=== PATIENT | female | born 1945 | race Caucasian/White ===

== ENCOUNTER 2016-07-14 21:48 | Emergency (ER) | payer MEDICARE ==
[~2016-07-14] VITALS: Ht 172.7 cm; Wt 56.7 kg
[~2016-07-14 21:48] MED LIST: ALPR0.5T PO; AMLO5TAB2 PO; CETI10TA22 PO; CIPR500T PO; FLUT1DIS3 IH; HYDR25SU4 RC; IPRA3AMP NEB; LEVO500T38 PO; ONDA8TAB9 PO; POLY17PO5 PO; PRED-220 PO; TIOT18CA IH; UMEC1DIS IH
[2016-07-14 22:01] VITALS: BP 150/98
[2016-07-14 22:47] LABS: BASO % 2 % (0-3); EOS % 7 % (0-3); HEMATOCRIT 34.4 % (36.0-47.0); HEMOGLOBIN 11.6 g/dL (12.0-15.5); LYMPH # 0.6 x10^3/uL (1.0-4.8); LYMPH % 44 % (24-48); MEAN CORPUSCULAR HEMOGLOBIN 33 pg (25-35); MEAN CORPUSCULAR HGB CONC 34 g/dL (31-37); MEAN CORPUSCULAR VOLUME 98 fL (79-100); MONO % 39 % (0-9); NEUT % 9 % (31-73); PLATELET COUNT 212 x10^3/uL (140-400); RED CELL DISTRIBUTION WIDTH 15.2 % (11.5-14.5)
--- NOTE | 2016-07-14 22:51 | PHYS DOC ---
Past Medical History Past Medical History: Constipation, COPD, Other Additional Past Medical Histor: LUNG CA Past Surgical History: No Surgical History Alcohol Use: None Drug Use: None Adult General Chief Complaint Chief Complaint: SHORTNESS OF BREATH HPI HPI Patient is a 70 year old female who presents with complaint of shortness of breath. Patient states her symptoms started yesterday and have progressively worsened. Patient states that she is expressing shortness of breath while at rest. Patient has history of COPD and history of lung cancer. Patient states that she received her last dose of chemotherapy one week ago. Patient states that she is having tightness through chest and having difficulty taking a deep breath. Patient denies productive cough or fever. Patient also denies chest pain or abdominal pain. Patient took a nebulized treatment twice earlier today with no relief in symptoms. Review of Systems Review of Systems Constitutional: Denies fever or chills [] Eyes: Denies change in visual acuity, redness, or eye pain [] HENT: Denies nasal congestion or sore throat [] Respiratory: Shortness of breath [] Cardiovascular: Denies chest pain or edema [] GI: Denies abdominal pain, nausea, vomiting, bloody stools or diarrhea [] : Denies dysuria or hematuria [] Musculoskeletal: Denies back pain or joint pain [] Integument: Denies rash or skin lesions [] Neurologic: Denies headache, focal weakness or sensory changes [] Current Medications Current Medications Current Medications Medications (Trade) Dose Ordered Sig/Tony Start Time Stop Time Status Last Admin Dose Admin Albuterol/ Ipratropium (Duoneb) 6 ml 1X ONCE 07/14/16 23:00 07/14/16 23:01 DC 07/14/16 23:19 6 ML Info (Do NOT chart on this entry -- for MONITORING) 1 each PRN DAILY PRN 07/14/16 23:45 07/16/16 23:44 Iohexol (Omnipaque 300 Mg/ml) 75 ml 1X ONCE 07/14/16 23:45 07/14/16 23:46 Sodium Chloride (Iv Sodium Chloride 0.9% 1000ml Bag) 1,000 ml @ 100 mls/hr Q10H 07/14/16 23:00 07/15/16 08:59 07/14/16 22:50 100 MLS/HR Allergies Allergies Allergies Coded Allergies Type Severity Reaction Last Updated Verified No Known Drug Allergies 09/20/14 No Physical Exam Physical Exam Constitutional: Alert, afebrile, appears in mild to moderate respiratory distress. [] HENT: Normocephalic, atraumatic, bilateral external ears normal, oropharynx moist, no oral exudates, nose normal. [] Eyes: PERRLA, EOMI, conjunctiva normal, no discharge. [] Neck: Normal range of motion, no tenderness, supple, no stridor. [] Cardiovascular:Heart rate regular rhythm, no murmur [] Lungs & Thorax: Moderate restriction of air movement bilaterally, faint extremity wheezes bilaterally, no rales [] Abdomen: Bowel sounds normal, soft, no tenderness, no masses, no pulsatile masses. [] Skin: Warm, dry, no erythema, no rash. [] Back: No tenderness, no CVA tenderness. [] Extremities: No tenderness, no cyanosis, no clubbing, ROM intact, no edema. [] Neurologic: Alert and oriented X 3, normal motor function, normal sensory function, no focal deficits noted. [] Current Patient Data Vital Signs Vital Signs Date Time Temp Pulse Resp B/P Pulse Ox O2 Delivery O2 Flow Rate FiO2 07/14/16 23:29 98 07/14/16 22:01 97.8 104 28 150/98 Room Air 97.8 Lab Values Laboratory Tests Test 07/14/16 22:20 07/14/16 22:58 07/14/16 23:05 White Blood Count 1.4x10^3/uL (4.0-11.0) *L Red Blood Count 3.50x10^6/uL (3.50-5.40) Hemoglobin 11.6g/dL (12.0-15.5) L Hematocrit 34.4% (36.0-47.0) L Mean Corpuscular Volume 98fL (79-100) Mean Corpuscular Hemoglobin 33pg (25-35) Mean Corpuscular Hemoglobin Concent 34g/dL (31-37) Red Cell Distribution Width 15.2% (11.5-14.5) H Platelet Count 212x10^3/uL (140-400) Neutrophils (%) (Auto) 9% (31-73) L Lymphocytes (%) (Auto) 44% (24-48) Monocytes (%) (Auto) 39% (0-9) H Eosinophils (%) (Auto) 7% (0-3) H Basophils (%) (Auto) 2% (0-3) Neutrophils # (Auto) 0.1x10^3uL (1.8-7.7) L Lymphocytes # (Auto) 0.6x10^3/uL (1.0-4.8) L Monocytes # (Auto) 0.5x10^3/uL (0.0-1.1) Eosinophils # (Auto) 0.1x10^3/uL (0.0-0.7) Basophils # (Auto) 0.0x10^3/uL (0.0-0.2) Segmented Neutrophils % 4% (35-66) L Band Neutrophils % 1% (0-9) Lymphocytes % 50% (24-48) H Monocytes % 32% (0-10) H Eosinophils % 10% (0-5) H Basophils % 3% (0-3) Toxic Vacuolation Slight Platelet Estimate Adequate (ADEQUATE) Sodium Level 145mmol/L (136-145) Potassium Level 3.5mmol/L (3.5-5.1) Chloride Level 109mmol/L (98-107) H Carbon Dioxide Level 26mmol/L (21-32) Anion Gap 10 (6-14) Blood Urea Nitrogen 12mg/dL (7-20) Creatinine 0.4mg/dL (0.6-1.0) L Estimated GFR (Cockcroft-Gault) 158.7 Glucose Level 140mg/dL (70-99) H Calcium Level 8.8mg/dL (8.5-10.1) Magnesium Level 1.6mg/dL (1.8-2.4) L Total Bilirubin 0.2mg/dL (0.2-1.0) Direct Bilirubin 0.1mg/dL (0.0-0.2) Aspartate Amino Transferase (AST) 14U/L (15-37) L Alanine Aminotransferase (ALT) 20U/L (14-59) Alkaline Phosphatase 92U/L (46-116) Creatine Kinase 44U/L (26-192) Creatine Kinase MB (Mass) 0.7ng/mL (0.0-3.6) Creatine Kinase MB Relative Index 1.6% (0-4) Troponin I Quantitative < 0.017ng/mL (0.000-0.055) QJ-Bbb-L-Type Natriuretic Peptide 59pg/mL (0-124) Total Protein 6.2g/dL (6.4-8.2) L Albumin 3.3g/dL (3.4-5.0) L Urine Collection Type Clean catch Urine Color Yellow Urine Clarity Cloudy Urine pH 5.5 Urine Specific [place] 1.020 Urine Protein Negativemg/dL (NEG-TRACE) Urine Glucose (UA) Negativemg/dL (NEG) Urine Ketones (Stick) Negativemg/dL (NEG) Urine Blood Negative (NEG) Urine Nitrite Negative (NEG) Urine Bilirubin Negative (NEG) Urine Urobilinogen Dipstick 0.2mg/dL (0.2 mg/dL) Urine Leukocyte Esterase Negative (NEG) Urine RBC Occ/HPF (0-2) Urine WBC Occ/HPF (0-4) Urine Squamous Epithelial Cells Mod/LPF Urine Bacteria Few/HPF (0-FEW) Urine Mucus Marked/LPF Laboratory Tests 07/14/16 22:20 Laboratory Tests 07/14/16 22:58 EKG EKG Interpreted by me: Heart rate 84, sinus rhythm, normal intervals, normal axis, nonspecific T-wave inversion in aVL, no acute ST elevations or depressions [] Radiology/Procedures Radiology/Procedures One view AP chest x-ray interpreted by me: Left hilar mass appears decreased from previous, no new infiltrates or effusions Course & Med Decision Making Course & Med Decision Making Pertinent Labs and Imaging studies reviewed. (See chart for details) The patient was given DuoNeb breathing treatments in the emergency department. Patient's chest x-ray appears improved from her previous. Etiology of patient's dyspnea may be due to COPD exacerbation, however a PE cannot be ruled out at this time. For this reason the patient will undergo CT angiogram rule out PE as she does have risk with her associated lung cancer. The patient was also found to be neutropenic. I consult to Dr. Corrales of hematology/oncology. She stated that if the patient's symptoms improved and the patient did not have evidence of pulmonary embolism that the patient could be discharged home with no specific treatment for her neutropenia as the patient is not displaying evidence of fever or infection at this time. She did state however that if the patient's symptoms do not improve with standard therapy and the patient would need to be admitted the hospital that she should receive Neupogen 300 g daily. At time of sign out, patient is pending a CT angiogram to rule out pulmonary embolism. Care of patient was taken over by Dr. Milligan at 2350. Dragon Disclaimer Dragon Disclaimer This electronic medical record was generated, in whole or in part, using a voice recognition dictation system. Departure Departure Impression: Primary Impression: Shortness of breath Referrals: KATIE HESTER MD (PCP) MONI MISHRA MD Jul 14, 2016 22:51
[2016-07-14 22:55] LABS: WHITE BLOOD COUNT 1.4 x10^3/uL (4.0-11.0)
[2016-07-14] MEDS ORDERED: IPRATRPIUM/ALBUTEROL 0.5/2.5MG 3 ML NEBU. NEB ONE (23:00)
[2016-07-14] MEDS ORDERED: IV NORMAL SALINE 1000ML BAG 1,000 ML IV SCH (23:00)
[2016-07-14 23:13] LABS: BILIRUBIN,URINE NEGATIVE (NEG); GLUCOSE,URINE NEGATIVE (NEG); NITRITE,URINE NEGATIVE (NEG); PH,URINE 5.5; PROTEIN,URINE NEGATIVE (NEG-TRACE); UROBILINOGEN,URINE 0.2 mg/dL (0.2 mg/dL)
[2016-07-14 23:15] LABS: % BASOS 3 % (0-3); % EOS 10 % (0-5); PLT ESTIMATE ADEQUATE (ADEQUATE)
[2016-07-14 23:16] LABS: TOXIC VACUOLATION SLIGHT
[2016-07-14 23:17] LABS: CALCIUM 8.8 mg/dL (8.5-10.1); CREATININE 0.4 mg/dL (0.6-1.0); GFR 158.7; POTASSIUM 3.5 mmol/L (3.5-5.1)
[2016-07-14 23:22] LABS: ALBUMIN 3.3 g/dL (3.4-5.0); DIRECT BILIRUBIN 0.1 mg/dL (0.0-0.2); MAGNESIUM 1.6 mg/dL (1.8-2.4); TOTAL BILIRUBIN 0.2 mg/dL (0.2-1.0); TOTAL PROTEIN 6.2 g/dL (6.4-8.2)
[2016-07-14 23:23] LABS: BACTERIA,URINE FEW /HPF (0-FEW); RBC,URINE OCC /HPF (0-2); SQUAMOUS EPITHELIAL CELL,UR MOD /LPF; WBC,URINE OCC /HPF (0-4)
[2016-07-14 23:30] LABS: CKMB INDEX 1.6 % (0-4); CKMB MASS 0.7 ng/mL (0.0-3.6)
[2016-07-14] MEDS ORDERED: IOHEXOL 300 MG/ML 75 ML VIAL IV ONE (23:45)
[2016-07-14] MEDS ORDERED: CONTRAST GIVEN MC PRN (23:45)
--- NOTE | 2016-07-15 00:18 | RAD ---
Examination: CT angiography chest. History: History of lung cancer, shortness of breath. COMPARISON 02/10/[address] angiographic images with is for performed with IV contrast. Coronal sagittal 3D MIP reformats were performed. Findings : The visualized thyroid gland demonstrates a 1.4 centimeter hypodense nodule identified in the left lobe of the thyroid gland. Mild cardiomegaly. Moderate aortic atherosclerosis. Diffuse coronary artery calcifications identified. There is no evidence of filling defect identified in the main pulmonary arterial trunk and right, left main pulmonary arteries and the visualized lobar, segmental branches of the pulmonary arteries. There is a solid appearing density identified in the left upper lobe of the lung in the region of the lingula measuring about 7.5 centimeters with some narrowing of the left lingular bronchus likely malignancy or postobstructive atelectasis. This soft tissue density abuts the pericardium medially and extends towards the anterior pleura laterally abutting the distal portion of the fissure. Severe bilateral emphysematous changes identified in the lungs. The visualized liver, spleen, adrenals grossly appears unremarkable . Mild degenerative changes thoracic spine. IMPRESSION - No evidence of pulmonary embolism. - Large masslike density identified in the left upper lobe of the lung in the lingula as described above with narrowing of the left lingular bronchus likely known malignancy or endobronchial lesion with postobstructive atelectasis has decreased in size compared to prior exam. - Severe emphysematous changes identified in the bilateral lungs. - Coronary artery calcifications. - 1.4 centimeter hypodense nodule identified in the left lobe of thyroid gland. Followup nonemergent ultrasound thyroid is recommended. Electronically signed by: Jaleel Morales (Jul 15, 2016 00:16:20)
[2016-07-15] MEDS ORDERED: PRED50TA PO (00:23)
[2016-07-15] MEDS ORDERED: PROAIR HFA8.5 GM INH (00:24)
--- NOTE | 2016-07-15 06:35 | EKG ---
[facility] [address] [place] [address] Test Date: 2016-07-14 Test Time: 22:04:21 Pat Name: GREER APARICIO Department: Room: Gender: F Programming Internship: : 1945 Requested By: MONI MISHRA Order Number: [id number] Reading MD: Joann Rosales Measurements Intervals [place] Rate: 84 P: 45 [place]: 146 QRS: 84 QRSD: 90 T: 92 QT: 354 QTc: 421 Interpretive Statements SINUS RHYTHM INCOMPLETE RBBB Electronically Signed On 07-18-2016 18:13:34 CDT by Joann Rosales
--- NOTE | 2016-07-15 07:44 | RAD ---
EXAM: Chest, single view. HISTORY: Shortness of breath. COMPARISON: 02/14/2016. FINDINGS: A frontal view of the chest is obtained. There is increased lingular and left perihilar opacity. There is no effusion or pneumothorax. There is hyperinflation and hyperlucency due to emphysema. The heart is upper normal in size. IMPRESSION: 1. Lingular and left perihilar opacity. The differential includes partially consolidated infiltrate or neoplasm. This can be better characterized with a CT. 2. Emphysema.
== END 2016-07-15 00:30 | disposition home or self-care (01) ==
LOC: ER 21:48
DX: R06.02 Shortness of breath (principal); R07.89 Other chest pain; J44.1 Chronic obstructive pulmonary disease with (acute) exacerbation; Z85.118 Personal history of other malignant neoplasm of bronchus and lung; Z51.11 Encounter for antineoplastic chemotherapy
CPT/HCPCS: 36415; 71010; 71275; 80048; 80076; 81001; 82553; 83735; 83880; 84484; 85007; 85027; 93005; 94640; 96360; 96361; 99285; J7030; J7620; Q9967

== ENCOUNTER 2016-09-18 09:40 | Inpatient (IN) | payer MEDICARE ==
[~2016-09-18] VITALS: Ht 170.2 cm; Wt 54.4 kg
[~2016-09-18 09:40] MED LIST changes: +POLY17PO29 PO; -POLY17PO5 PO; +PRED50TA PO; +PROAIR HFA8.5 GM INH
--- NOTE | 2016-09-18 10:16 | RAD ---
Indication: Shortness of breath and history of lung cancer. Time of exam 10 0 6:00 AM Correlation is made with prior chest from 07/14/2016. The heart size is stable. Lungs are hyperinflated consistent with COPD. Previously noted left perihilar and lingular parenchymal density appears stable. No new infiltrate is seen. No effusion or pneumothorax is detected. Impression: Stable chest since exam from 07/14/2016.
[2016-09-18 10:34] LABS: BASO % 0 % (0-3); EOS % 0 % (0-3); HEMATOCRIT 42.3 % (36.0-47.0); HEMOGLOBIN 14.1 g/dL (12.0-15.5); LYMPH # 0.3 x10^3/uL (1.0-4.8); LYMPH % 12 % (24-48); MEAN CORPUSCULAR HEMOGLOBIN 32 pg (25-35); MEAN CORPUSCULAR HGB CONC 33 g/dL (31-37); MEAN CORPUSCULAR VOLUME 97 fL (79-100); MONO % 7 % (0-9); NEUT % 81 % (31-73); PLATELET COUNT 138 x10^3/uL (140-400); RED BLOOD COUNT 4.38 x10^6/uL (3.50-5.40); RED CELL DISTRIBUTION WIDTH 13.7 % (11.5-14.5); WHITE BLOOD COUNT 2.6 x10^3/uL (4.0-11.0)
[2016-09-18 10:39] LABS: OBC FLU VALID
[2016-09-18 11:00] LABS: CALCIUM 8.9 mg/dL (8.5-10.1); CREATININE 0.4 mg/dL (0.6-1.0); GFR 158.7; POTASSIUM 4.1 mmol/L (3.5-5.1)
[2016-09-18 11:04] LABS: ALBUMIN 3.8 g/dL (3.4-5.0); TOTAL BILIRUBIN 0.5 mg/dL (0.2-1.0); TOTAL PROTEIN 7.5 g/dL (6.4-8.2)
[2016-09-18] MEDS ORDERED: IV NORMAL SALINE 1000ML BAG 1,000 ML IV ONE (11:15)
[2016-09-18] MEDS ORDERED: IOHEXOL 300 MG/ML 75 ML VIAL IV ONE (11:30)
[2016-09-18] MEDS ORDERED: CONTRAST GIVEN MC PRN (11:30)
--- NOTE | 2016-09-18 11:56 | RAD ---
Indication: Shortness of breath and history of lung carcinoma. Axial imaging through the chest was performed after the administration of intravenous contrast and utilizing the CT angiography protocol. Multiplanar, 3-D and MIP reformations were also performed. Comparison is made with prior CT from 07/14/2016. Evaluation of the pulmonary arterial system is without evidence of thromboembolism. No filling defects are detected. The thoracic aorta is normal caliber. No dissection is seen. There are atherosclerotic changes present. No pericardial or pleural fluid is identified. The previously noted opacity extending from the left hilum towards the lingular pleural surface and narrowing the lingular bronchus is again noted and appears smaller on today's study. This measures 4.9 x 3.2 cm compared with 6.1 x 3.5 cm when measured by the same technique. No new mass is detected. There are centrilobular emphysematous changes in both lungs. The upper abdomen appears stable. Impression: 1. No evidence of pulmonary embolism or thoracic aortic dissection. 2. Decrease in size of left hilar parenchymal opacity when compared with exam from 07/14/2016. PQRS Compliance Statement: One or more of the following individualized dose reduction techniques were utilized for this examination: 1. Automated exposure control 2. Adjustment of the mA and/or kV according to patient size 3. Use of iterative reconstruction technique
[2016-09-18] MEDS ORDERED: IPRATRPIUM/ALBUTEROL 0.5/2.5MG 3 ML NEBU. NEB ONE (12:30)
--- NOTE | 2016-09-18 12:34 | EKG ---
[facility] [address] [place] [address] Test Date: 2016-09-18 Test Time: 10:02:38 Pat Name: GREER APARICIO Department: Room: Gender: F [employer] Operator: : 1945 Requested By: ES PEDERSEN Order Number: [id number] Reading MD: Severiano Manrique Measurements Intervals [place] Rate: 69 P: 65 [place]: 142 QRS: 87 QRSD: 90 T: 89 QT: 370 QTc: 398 Interpretive Statements SINUS RHYTHM QRS(T) CONTOUR ABNORMALITY CONSIDER ANTEROSEPTAL MYOCARDIAL DAMAGE RI6.01 Unconfirmed report Compared to ECG 07/14/2016 22:04:21 Right bundle-branch block no longer present Electronically Signed On 09-22-2016 9:40:16 CDT by Severiano Manrique
[2016-09-18] MEDS ORDERED: AZITHRMYCN 500MG IVPB FOR OMNI 250 ML IV ONE (12:45)
--- NOTE | 2016-09-18 13:30 | ED.ADGEN ---
Past Medical History Past Medical History: Cancer, Constipation, COPD, Other Additional Past Medical Histor: LUNG CA Past Surgical History: No Surgical History Alcohol Use: None Drug Use: None Adult General Chief Complaint Chief Complaint: SHORTNESS OF BREATH HPI HPI Patient is a 70 year old woman, history of lung cancer status post treatment with chemotherapy, for which she is being followed by Dr. Oreilly, COPD, hypertension, who presents emergency Department with a complaint of worsening shortness of breath and dyspnea and exertion. Patient states that she previously would occasionally use her oxygen as needed, 2 L, but was able to ambulance to the bathroom and perform other activities of daily living without supple oxygen. She states however over the past week or so she had progressively worsening shortness of breath, with a nonproductive cough at times. Patient was seen by her primary care provider last week, at that time she was prescribed prednisone and ciprofloxacin which she states she has been taking as directed. She denies any recent travel, history of DVT or PE, any swelling extremities, any history of PE, any weakness, numbness, tingling, rash , sick contacts or exposures other medication changes or complaints. Primary care provider is Dr. Mathew. Review of Systems Review of Systems Constitutional: Denies fever or chills. [] Eyes: Denies change in visual acuity. [] HENT: Denies nasal congestion or sore throat. [] Respiratory: Cough, nonproductive, with worsening shortness of breath Cardiovascular: Denies chest pain or edema. [] GI: Denies abdominal pain, nausea, vomiting, bloody stools or diarrhea. [] : Denies dysuria. [] Musculoskeletal: Denies back pain or joint pain. [] Integument: Denies rash. [] Neurologic: Denies headache, focal weakness or sensory changes. [] Endocrine: Denies polyuria or polydipsia. [] Lymphatic: Denies swollen glands. [] Psychiatric: Denies depression or anxiety. [] Current Medications Current Medications Current Medications Medications (Trade) Dose Ordered Sig/Tony Start Time Stop Time Status Last Admin Dose Admin Info (Do NOT chart on this entry -- for MONITORING) 1 each PRN DAILY PRN 09/18/16 11:30 09/20/16 11:29 Iohexol (Omnipaque 300 Mg/ml) 75 ml 1X ONCE 09/18/16 11:30 09/18/16 11:31 DC 09/18/16 11:28 75 ML Sodium Chloride 1,000 ml @ 1,000 mls/hr 1X ONCE 09/18/16 11:15 09/18/16 12:14 DC 09/18/16 11:55 1,000 MLS/HR Allergies Allergies Allergies Coded Allergies Type Severity Reaction Last Updated Verified No Known Drug Allergies 09/20/14 No Physical Exam Physical Exam Constitutional: Well developed, thin, nasal cannula in place, no acute distress , non-toxic appearance. [] HENT: Normocephalic, atraumatic, bilateral external ears normal, oropharynx moist, no oral exudates, nose normal. [] Eyes: PERRLA, EOMI, conjunctiva normal, no discharge. [] Neck: Normal range of motion, no tenderness, supple, no stridor. [] Cardiovascular:Heart rate regular rhythm, no murmur S1, S2, no rubs or gallops. [] Lungs & Thorax: Patient with coarse breath sounds noted in lung bases, with diminished breath sounds noted throughout, patient with 2 L nasal cannula in place, respiratory rate is unlabored, oxygen saturation is 94%. [] Abdomen: Bowel sounds normal, soft, no tenderness, no rebound, rigidity, no guarding, no masses, no pulsatile masses. [] Skin: Warm, dry, no erythema, no rash. [] Back: No tenderness, no CVA tenderness. [] Extremities: No tenderness, no cyanosis, no clubbing, ROM intact, no edema. Negative Homans sign. [] Neurologic: Alert and oriented X 3, normal motor function, normal sensory function, no focal deficits noted. [] Psychologic: Affect normal, judgement normal, mood normal. [] Current Patient Data Vital Signs Vital Signs Date Time Temp Pulse Resp B/P (MAP) Pulse Ox O2 Delivery O2 Flow Rate FiO2 09/18/16 09:50 96.9 70 20 124/66 (85) 95 Nasal Cannula 2.0 96.9 Lab Values Laboratory Tests Test 09/18/16 10:02 09/18/16 10:18 Influenza Type A Antigen Negative (NEGATIVE) Influenza Type B Antigen Negative (NEGATIVE) White Blood Count 2.6 x10^3/uL (4.0-11.0) L Red Blood Count 4.38 x10^6/uL (3.50-5.40) Hemoglobin 14.1 g/dL (12.0-15.5) Hematocrit 42.3 % (36.0-47.0) Mean Corpuscular Volume 97 fL (79-100) Mean Corpuscular Hemoglobin 32 pg (25-35) Mean Corpuscular Hemoglobin Concent 33 g/dL (31-37) Red Cell Distribution Width 13.7 % (11.5-14.5) Platelet Count 138 x10^3/uL (140-400) L Neutrophils (%) (Auto) 81 % (31-73) H Lymphocytes (%) (Auto) 12 % (24-48) L Monocytes (%) (Auto) 7 % (0-9) Eosinophils (%) (Auto) 0 % (0-3) Basophils (%) (Auto) 0 % (0-3) Neutrophils # (Auto) 2.1 x10^3uL (1.8-7.7) Lymphocytes # (Auto) 0.3 x10^3/uL (1.0-4.8) L Monocytes # (Auto) 0.2 x10^3/uL (0.0-1.1) Eosinophils # (Auto) 0.0 x10^3/uL (0.0-0.7) Basophils # (Auto) 0.0 x10^3/uL (0.0-0.2) Sodium Level 142 mmol/L (136-145) Potassium Level 4.1 mmol/L (3.5-5.1) Chloride Level 102 mmol/L (98-107) Carbon Dioxide Level 30 mmol/L (21-32) Anion Gap 10 (6-14) Blood Urea Nitrogen 10 mg/dL (7-20) Creatinine 0.4 mg/dL (0.6-1.0) L Estimated GFR (Cockcroft-Gault) 158.7 BUN/Creatinine Ratio 25 (6-20) H Glucose Level 115 mg/dL (70-99) H Calcium Level 8.9 mg/dL (8.5-10.1) Total Bilirubin 0.5 mg/dL (0.2-1.0) Aspartate Amino Transferase (AST) 16 U/L (15-37) Alanine Aminotransferase (ALT) 21 U/L (14-59) Alkaline Phosphatase 78 U/L (46-116) Troponin I Quantitative < 0.017 ng/mL (0.000-0.055) FX-Dvr-L-Type Natriuretic Peptide 65 pg/mL (0-124) Total Protein 7.5 g/dL (6.4-8.2) Albumin 3.8 g/dL (3.4-5.0) Albumin/Globulin Ratio 1.0 (1.0-1.7) Laboratory Tests 09/18/16 10:18 Laboratory Tests 09/18/16 10:18 EKG EKG EC: Sinus rhythm, heart rate 69 beats minute, upright axis, rate 98, NV 142, QRS of 90, contour normality is noted in the anterior septal leads, no ST depressions, no significant elevations, abnormal ECG, does not meet STEMI criteria. As interpreted by me. [] Radiology/Procedures Radiology/Procedures [][address] [address] IMAGING REPORT Signed PATIENT: GREER APARICIO ACCOUNT: [id number] : 1945 LOCATION: ER AGE: 70 SEX: F EXAM STATUS: REG ER ORD. PHYSICIAN: ES PEDERSEN DO REASON: SOB PROCEDURE: CHEST PA & LATERAL Indication: Shortness of breath and history of lung cancer. Time of exam 10 0 6:00 AM Correlation is made with prior chest from 07/14/2016. The heart size is stable. Lungs are hyperinflated consistent with COPD. Previously noted left perihilar and lingular parenchymal density appears stable. No new infiltrate is seen. No effusion or pneumothorax is detected. Impression: Stable chest since exam from 07/14/2016. DICTATED and SIGNED BY: SMILEY WYMAN MD DATE: 09/18/16 1012 CC: ES PEDERSEN DO; KATIE MATHEW MD ~ Impressions: [address] [address] IMAGING REPORT Signed PATIENT: GREER APARICIO ACCOUNT: [id number] : 1945 LOCATION: ER AGE: 70 SEX: F EXAM STATUS: REG ER ORD. PHYSICIAN: ES PEDERSEN DO REASON: SOB/Hypoxia PROCEDURE: CT ANGIOGRAPHY CHEST Indication: Shortness of breath and history of lung carcinoma. Axial imaging through the chest was performed after the administration of intravenous contrast and utilizing the CT angiography protocol. Multiplanar, 3-D and MIP reformations were also performed. Comparison is made with prior CT from 07/14/2016. Evaluation of the pulmonary arterial system is without evidence of thromboembolism. No filling defects are detected. The thoracic aorta is normal caliber. No dissection is seen. There are atherosclerotic changes present. No pericardial or pleural fluid is identified. The previously noted opacity extending from the left hilum towards the lingular pleural surface and narrowing the lingular bronchus is again noted and appears smaller on today's study. This measures 4.9 x 3.2 cm compared with 6.1 x 3.5 cm when measured by the same technique. No new mass is detected. There are centrilobular emphysematous changes in both lungs. The upper abdomen appears stable. Impression: 1. No evidence of pulmonary embolism or thoracic aortic dissection. 2. Decrease in size of left hilar parenchymal opacity when compared with exam from 07/14/2016. PQRS Compliance Statement: One or more of the following individualized dose reduction techniques were utilized for this examination: 1. Automated exposure control 2. Adjustment of the mA and/or kV according to patient size 3. Use of iterative reconstruction technique DICTATED and SIGNED BY: SMILEY WYMAN MD DATE: 09/18/16 1145 CC: ES PEDERSEN DO; KATIE MATHEW MD ~ Course & Med Decision Making Course & Med Decision Making Pertinent Labs and Imaging studies reviewed. (See chart for details) Patient with evidence of dehydration clinically and examination, states that she is having a decreased appetite, and very poor eating and drinking over the past several days. Patient states that she is feeling increasingly tired, fatigued, and using her oxygen constantly. Chest x-ray does not reveal any acutely concerning findings, laboratory studies reveal a white count of 2.6, patient's white count is fluctuate previously, from 1.7 on her last admission. After discussion at bedside, with patient's history of cancer, and worsening respiratory status, she is agreeable to receiving a CT of the chest to rule out a PE or other acute pathology. CT obtained without issue, no evidence of PE noted, patient noted to have improvement of the hilar mass. I did discuss these findings with patient she is released medics, however she remains dyspneic and fatigued, with evidence dehydration as stated. After discussion with patient she is agreeable for admission to the hospital, for treatment with supportive respiratory care, continue IV antibiotics and IV fluids. Findings as above discussed with Dr. Medina, on-call for the patient's primary care provider, patient accepted to his service a full admission to the medical telemetry floor , with plan as above to continue treatment for community-acquired pneumonia, and consultation for pulmonary critical care. Dragon Disclaimer Dragon Disclaimer This electronic medical record was generated, in whole or in part, using a voice recognition dictation system. Departure Impression: Primary Impression: Dyspnea Additional Impression: Shortness of breath Disposition: ADMITTED INPATIENT Admitting Physician: Melonie Medina Condition: IMPROVED Problem Qualifiers ES PEDERSEN DO Sep 18, 2016 13:30
[2016-09-18] MEDS ORDERED: ACETAMINOPHEN 325 MG TABLET. PO PRN (14:00)
[2016-09-18] MEDS ORDERED: ONDANSETRON PF 4 MG/2 ML VIAL. IV PRN (14:00)
[2016-09-18 14:22] VITALS: BP 135/61
[2016-09-18] MEDS: IV NORMAL SALINE 1000ML BAG 1,000 ML IV SCH ×2 (14:48→22:08)
[2016-09-18] MEDS ORDERED: CIPR500T6 PO (15:05)
[2016-09-18] MEDS ORDERED: PRED-220 PO (15:05)
[2016-09-18] MEDS: methylPREDNISolone SOD SUCC PF 40 MG/ML VIAL. IV SCH ×2 (15:26→22:05)
[2016-09-18] MEDS ORDERED: ALPRAZolam 0.5 MG TABLET PO PRN (15:30)
[2016-09-18] MEDS ORDERED: POLYETHYLENE GLYCOL 3350 17 GM PACKET. PO PRN (15:30)
[2016-09-18] MEDS: IPRATRPIUM/ALBUTEROL 0.5/2.5MG 3 ML NEBU. NEB SCH ×2 (15:41→19:54)
--- NOTE | 2016-09-18 15:47 | PDOC ---
Provider Note Provider Note H&P dictated # [id number] LENNY RAY MD Sep 18, 2016 15:47
[2016-09-18] MEDS ORDERED: IPRATRPIUM/ALBUTEROL 0.5/2.5MG 3 ML NEBU. NEB SCH (16:00)
[2016-09-18] MEDS: amLODIPine BESYLATE 5 MG TABLET PO SCH (16:00)
--- NOTE | 2016-09-18 16:37 | HP ---
ADMIT DATE: 09/18/2016 ADMISSION DIAGNOSIS: Acute respiratory failure. HISTORY OF PRESENT ILLNESS: This is a 70-year-old female with lung cancer who has been getting chemotherapy, followed by Dr. Oreilly, who saw Dr. Mathew recently with symptoms of bronchitis and was started on Cipro and some steroids as an outpatient, but she has continued to have worsened and gotten more dyspneic and came to the Emergency Room. She was trying to use 2 liters of oxygen at home, but was too short of breath to ambulate to the bathroom despite the supplemental oxygen. She had not any fever, chills or night sweats or hemoptysis. PAST MEDICAL HISTORY: Significant for lung cancer, COPD, heart disease, GERD, hemorrhoids, constipation, kidney stones, and anxiety. PAST SURGICAL HISTORY: Include cataract extraction in 1994, tonsillectomy as a child and treatment for lung cancer starting last fall. ALLERGIES: She has no known drug allergies. HOME MEDICATIONS: Include albuterol inhaler 1 puff q. 6 h. p.r.n., alprazolam 0.5 mg q. 6 h. p.r.n., amlodipine 5 mg daily, cetirizine 10 mg daily, Cipro 500 mg b.i.d., DuoNeb nebulized q.i.d., Zofran 8 mg b.i.d. p.r.n. nausea and vomiting, MiraLax 17 g daily p.r.n. constipation, prednisone currently on a taper, and Spiriva 1 inhalation daily. SOCIAL HISTORY: She is a former 40+ pack year smoker. She drinks alcohol occasionally, usually wine. REVIEW OF SYSTEMS: As mentioned above. No fever or chills. She has been progressively short of breath. She denies chest pain. She has not had any nausea, vomiting or diarrhea. She has been somewhat weak and deconditioned, but has not had any falls. She had not had any skin problems. No neurologic problems. No psychiatric issues. Her anxiety is controlled. PHYSICAL EXAMINATION: VITAL SIGNS: Stable. She is afebrile, blood pressure 126/59, pulse 68, respiratory rate 20, oximetry 96%, currently on 2 liters nasal cannula. GENERAL: Her hair is cut quite short. She looks thin, but she is energetic and alert and oriented. She is able to have a normal conversation ____ dyspnea. NECK: Supple. HEART: Sounds are distant. LUNGS: Have rhonchi and expiratory wheezes throughout, though. ABDOMEN: Soft, nondistended, and nontender. EXTREMITIES: There is no clubbing, cyanosis or peripheral edema, no bruising, no skin breakdown. LABORATORY DATA: Her white count is down to 2.6, hemoglobin is 14.1, and platelets 138. Chemistries are pretty unremarkable with normal electrolytes, normal BUN and creatinine. EGFR of 158. Troponins are negative. Flu testing is negative. IMAGING STUDIES: Chest x-ray is stable with COPD changes and left perihilar and lingular parenchymal densities are stable. Chest CTA showed no evidence of pulmonary embolism. There is a decrease in the size of the left hilar parenchymal opacity compared with 2 months ago. ASSESSMENT: 1. Acute respiratory failure, likely on the basis of pneumonia, although this is not showing up on her chest x-ray. 2. Lung cancer. 3. Hypertension. 4. Chronic obstructive pulmonary disease. 5. Anxiety. PLAN: She is admitted. She is on oxygen, neb treatments, IV steroids, and antibiotics. She is being hydrated with IV fluids. Pulmonary consultation is requested. Shawanda RAY MD DR: ZACH/liz JOB#: [id number] / [id number]
[2016-09-18 19:00] VITALS: BP 123/57
[2016-09-18 23:00] VITALS: BP 122/54
[2016-09-19 03:37] VITALS: BP 126/60
[2016-09-19 04:20] LABS: BASO % 0 % (0-3); EOS % 0 % (0-3); HEMATOCRIT 37.2 % (36.0-47.0); HEMOGLOBIN 12.5 g/dL (12.0-15.5); LYMPH # 0.3 x10^3/uL (1.0-4.8); LYMPH % 13 % (24-48); MEAN CORPUSCULAR HEMOGLOBIN 32 pg (25-35); MEAN CORPUSCULAR HGB CONC 34 g/dL (31-37); MEAN CORPUSCULAR VOLUME 96 fL (79-100); MONO % 8 % (0-9); NEUT % 79 % (31-73); PLATELET COUNT 135 x10^3/uL (140-400); RED BLOOD COUNT 3.88 x10^6/uL (3.50-5.40); RED CELL DISTRIBUTION WIDTH 13.6 % (11.5-14.5)
[2016-09-19 04:39] LABS: CALCIUM 8.4 mg/dL (8.5-10.1); CREATININE 0.5 mg/dL (0.6-1.0); GFR 122.7; POTASSIUM 4.5 mmol/L (3.5-5.1)
[2016-09-19 07:00] VITALS: BP 114/61
--- NOTE | 2016-09-19 07:31 | ACF ---
Admission Forms Criteria COPD Clinical Indications for Admission to Inpatient Care (Place 'X' for any and all applicable criteria): Admission is indicated for ANY ONE of the following (1)(2)(3): [X]I. Acute exacerbation by high-risk comorbidity (e.g., pneumonia, dysrhythmia, heart failure, pleural effusion, pneumothorax) or severe underlying COPD (e.g., steroid dependent) [X]II. Inpatient admission required rather than observation care (see Chronic Obstructive Pulmonary Disease: Observation Care) because of ANY ONE of the following: [X]a) New or pre-existing signs or symptoms of COPD (eg, dyspnea or Tachypnea at rest or with minimal activity) that persist despite outpatient and observation care treatment [ ]b) New-onset hypoxemia (room air SaO2 less than 90%, PO2 less than 60 mm Hg (8.0 kPa)) that persists despite outpatient and observation care treatment [ ]c) Worsening of pre-existing hypoxemia (eg, new or increased requirement for supplemental oxygen to maintain oxygenation at baseline level) that persists despite outpatient and observation care treatment, with oxygen treatment needs performable only in acute inpatient setting [ ]d) Hypercarbia (PCO2 greater than 40 mm Hg (5.3 kPa))-induced respiratory acidosis (pH less than 7.35) that persists despite outpatient and observation care treatment [ ]e) Supplemental oxygen or respiratory treatments for over 24 hours that are performable only in acute inpatient setting [ ]f) Chest tube placement with active evacuation (e.g., suction, drainage) (5) [ ]g) Other condition, treatment or monitoring requiring inpatient admission [ ]III. Planned invasive surgical or diagnostic procedures requiring acute- care hospitalization [ ]IV. Acute respiratory failure (e.g., uncompensated hypercarbia, severe hypoxemia) [ ]V. Severe comorbid condition (e.g., severe steroid myopathy, acute vertebral fracture) that has acutely worsened pulmonary function [ ]. Confusion state, lethargy, obtundation, stupor or coma Extended stay beyond goal length of stay may be needed for (31)(32): [ ]a ) Respiratory Failure. [ ]b) Severe or persisting hypoxemia or hypercarbia [ ]c) Severe or persistent dyspnea [ ]d) Comorbidities (e.g. chronic heart failure, atrial fibrillation with rapid response, pneumonia) [ ]e) Malnutrition The original [facility] content created by [facility] has been revised. The portions of the content which have been revised are identified through the use of italic text or in bold, and [facility] has neither reviewed nor approved the modified material. All other unmodified content is copyright [facility]. Please see references footnoted in the original [facility] edition 2016 Admission Criteria Met?: Yes DREA LOPEZ Sep 19, 2016 07:31
[2016-09-19] MEDS: IPRATRPIUM/ALBUTEROL 0.5/2.5MG 3 ML NEBU. NEB SCH ×2 (07:41→11:20)
--- NOTE | 2016-09-19 08:51 | PDOC ---
Provider Note Provider Note dictated PASCUAL WADSWORTH MD Sep 19, 2016 08:51
[2016-09-19] MEDS ORDERED: CETIRIZINE HCL 10 MG TABLET. PO SCH (09:00)
--- NOTE | 2016-09-19 09:18 | CONS ---
DATE OF CONSULTATION: ATTENDING PHYSICIAN: Dr. Breezy Medina. REASON FOR CONSULTATION: Dyspnea. HISTORY OF PRESENT ILLNESS: The patient is a 70-year-old female who has history of lung cancer, which was diagnosed in December of last year. She is status post chemo which she finished in June. She also is status post radiation, which she finished in April of this year. She smoked for about 35 years. She came to the hospital with 4-5 days of shortness of breath and also pain in the left shoulder. The patient states she usually uses oxygen 2 liters, but it did not help. She was seen as an outpatient by Dr. Blackman and was placed on steroids and an antibiotic without any improvement. As a result, she was hospitalized. In the Emergency Room, she underwent CTA of the chest, which was reviewed by me. There was no evidence of pulmonary embolism. There was decrease in the size of left hilar parenchymal opacity. There was also evidence of mild opacity, ground glass infiltrates in the lingular area. She feels better. Consultation requested for further evaluation and management. PAST MEDICAL HISTORY: Significant for lung cancer status post chemo, finished in June of this year and status post radiation, finished in April, history of GERD, history of oxygen dependent COPD, history of hemorrhoids, constipation, kidney stones, and anxiety. PAST SURGICAL HISTORY: Cataract extraction in 1994, tonsillectomy as a child and treatment for lung cancer starting last fall as discussed above. ALLERGIES: None. CURRENT MEDICATIONS: Reviewed as listed in the MRAD. REVIEW OF SYSTEMS: Twelve-point system obtained. Pertinent positives discussed in history of present illness, otherwise noncontributory. All systems that were negative were reviewed as well. ALLERGIES: None. SOCIAL HISTORY: Smoked for 50 years before quitting last year. PHYSICAL EXAMINATION: VITAL SIGNS: Stable. Pulse ox 98% on 3 liters. NECK: Supple. LUNGS: Diminished breath sounds bilaterally. CARDIOVASCULAR: Regular rate and rhythm. ABDOMEN: Soft and nontender. EXTREMITIES: With no pitting edema. LABORATORY DATA: Reviewed. White cell count 2.0, hemoglobin 12.5 and platelets are 135. BUN 10 and creatinine 0.5. IMPRESSION: 1. Dyspnea with acute on chronic hypoxic respiratory failure requiring 3 liters of oxygen. This is secondary to acute exacerbation of chronic obstructive pulmonary disease. 2. History of lung cancer status post chemo and radiation. Overall size of the left hilar mass-like opacity has decreased showing response to chemo. She is status post chemo and radiation. 3. Mild ground glass infiltrate in the lingular area, probably related to radiation-induced changes, but cannot exclude pneumonitis as she did have some cold symptoms a week ago. RECOMMENDATIONS: 1. Continue with present antibiotics. 2. Continue with present oxygen and slowly wean to a baseline of 2 liters. 3. IV steroids. 4. Nebulizer treatment. 5. Possible discharge in next 24 hours. 6. Follow up with Oncology. PASCUAL WADSWORTH MD DR: BARTOLO/liz JOB#: [id number] / [id number] JOSH
[2016-09-19] MEDS: methylPREDNISolone SOD SUCC PF 40 MG/ML VIAL. IV SCH (09:21)
[2016-09-19] MEDS: amLODIPine BESYLATE 5 MG TABLET PO SCH (09:21)
[2016-09-19 10:36] VITALS: BP 113/53
--- NOTE | 2016-09-19 11:34 | DISCH ---
DISCHARGE INSTRUCTIONS Condition on Discharge Condition on Discharge: Stable Activity After Discharge Activity Instructions for Disc: Activity as tolerated Diet after Discharge Diet after Discharge: Regular Contacting the DR. after DC Call your doctor for: Fever greater than 100 Follow-Up Follow up with: Dr. Mathew within [address] Oreilly as scheduled Treatment/Equipment after DC Discharge Respiratory Equipmen: Oxygen (has at haome), Nebulizer (has at home) LENNY RAY MD Sep 19, 2016 11:34
--- NOTE | 2016-09-19 11:40 | PDOC3 ---
Discharge Summary Visit Information Date of Admission: Sep 18, 2016 Date of Discharge: Sep 19, 2016 Final Diagnosis Problems Acute respiratory failure on chronic respiratory failure due to bronchitis and acute COPD exacerbation causing symptoms of worsening shortness of breath having failed OP treatment Status: Acute Brief Hospital Course Allergies Allergies Coded Allergies Type Severity Reaction Last Updated Verified No Known Drug Allergies 09/20/14 No Vital Signs Vital Signs Date Time Temp Pulse Resp B/P (MAP) Pulse Ox O2 Delivery O2 Flow Rate FiO2 09/19/16 11:21 98 Nasal Cannula 3.0 09/19/16 10:36 98.2 76 18 113/53 (73) 98.2 Lab Results Laboratory Tests Test 09/18/16 10:02 09/18/16 10:18 09/19/16 03:51 Influenza Type A Antigen Negative (NEGATIVE) Influenza Type B Antigen Negative (NEGATIVE) White Blood Count 2.6 x10^3/uL (4.0-11.0) 2.0 x10^3/uL (4.0-11.0) Red Blood Count 4.38 x10^6/uL (3.50-5.40) 3.88 x10^6/uL (3.50-5.40) Hemoglobin 14.1 g/dL (12.0-15.5) 12.5 g/dL (12.0-15.5) Hematocrit 42.3 % (36.0-47.0) 37.2 % (36.0-47.0) Mean Corpuscular Volume 97 fL (79-100) 96 fL (79-100) Mean Corpuscular Hemoglobin 32 pg (25-35) 32 pg (25-35) Mean Corpuscular Hemoglobin Concent 33 g/dL (31-37) 34 g/dL (31-37) Red Cell Distribution Width 13.7 % (11.5-14.5) 13.6 % (11.5-14.5) Platelet Count 138 x10^3/uL (140-400) 135 x10^3/uL (140-400) Neutrophils (%) (Auto) 81 % (31-73) 79 % (31-73) Lymphocytes (%) (Auto) 12 % (24-48) 13 % (24-48) Monocytes (%) (Auto) 7 % (0-9) 8 % (0-9) Eosinophils (%) (Auto) 0 % (0-3) 0 % (0-3) Basophils (%) (Auto) 0 % (0-3) 0 % (0-3) Neutrophils # (Auto) 2.1 x10^3uL (1.8-7.7) 1.6 x10^3uL (1.8-7.7) Lymphocytes # (Auto) 0.3 x10^3/uL (1.0-4.8) 0.3 x10^3/uL (1.0-4.8) Monocytes # (Auto) 0.2 x10^3/uL (0.0-1.1) 0.2 x10^3/uL (0.0-1.1) Eosinophils # (Auto) 0.0 x10^3/uL (0.0-0.7) 0.0 x10^3/uL (0.0-0.7) Basophils # (Auto) 0.0 x10^3/uL (0.0-0.2) 0.0 x10^3/uL (0.0-0.2) Sodium Level 142 mmol/L (136-145) 146 mmol/L (136-145) Potassium Level 4.1 mmol/L (3.5-5.1) 4.5 mmol/L (3.5-5.1) Chloride Level 102 mmol/L (98-107) 108 mmol/L (98-107) Carbon Dioxide Level 30 mmol/L (21-32) 36 mmol/L (21-32) Anion Gap 10 (6-14) 2 (6-14) Blood Urea Nitrogen 10 mg/dL (7-20) 10 mg/dL (7-20) Creatinine 0.4 mg/dL (0.6-1.0) 0.5 mg/dL (0.6-1.0) Estimated GFR (Cockcroft-Gault) 158.7 122.7 BUN/Creatinine Ratio 25 (6-20) Glucose Level 115 mg/dL (70-99) 124 mg/dL (70-99) Calcium Level 8.9 mg/dL (8.5-10.1) 8.4 mg/dL (8.5-10.1) Total Bilirubin 0.5 mg/dL (0.2-1.0) Aspartate Amino Transf (AST/SGOT) 16 U/L (15-37) Alanine Aminotransferase (ALT/SGPT) 21 U/L (14-59) Alkaline Phosphatase 78 U/L (46-116) Troponin I Quantitative < 0.017 ng/mL (0.000-0.055) BG-Hal-R-Type Natriuretic Peptide 65 pg/mL (0-124) Total Protein 7.5 g/dL (6.4-8.2) Albumin 3.8 g/dL (3.4-5.0) Albumin/Globulin Ratio 1.0 (1.0-1.7) Laboratory Tests Test 09/19/16 03:51 White Blood Count 2.0 x10^3/uL (4.0-11.0) Red Blood Count 3.88 x10^6/uL (3.50-5.40) Hemoglobin 12.5 g/dL (12.0-15.5) Hematocrit 37.2 % (36.0-47.0) Mean Corpuscular Volume 96 fL (79-100) Mean Corpuscular Hemoglobin 32 pg (25-35) Mean Corpuscular Hemoglobin Concent 34 g/dL (31-37) Red Cell Distribution Width 13.6 % (11.5-14.5) Platelet Count 135 x10^3/uL (140-400) Neutrophils (%) (Auto) 79 % (31-73) Lymphocytes (%) (Auto) 13 % (24-48) Monocytes (%) (Auto) 8 % (0-9) Eosinophils (%) (Auto) 0 % (0-3) Basophils (%) (Auto) 0 % (0-3) Neutrophils # (Auto) 1.6 x10^3uL (1.8-7.7) Lymphocytes # (Auto) 0.3 x10^3/uL (1.0-4.8) Monocytes # (Auto) 0.2 x10^3/uL (0.0-1.1) Eosinophils # (Auto) 0.0 x10^3/uL (0.0-0.7) Basophils # (Auto) 0.0 x10^3/uL (0.0-0.2) Sodium Level 146 mmol/L (136-145) Potassium Level 4.5 mmol/L (3.5-5.1) Chloride Level 108 mmol/L (98-107) Carbon Dioxide Level 36 mmol/L (21-32) Anion Gap 2 (6-14) Blood Urea Nitrogen 10 mg/dL (7-20) Creatinine 0.5 mg/dL (0.6-1.0) Estimated GFR (Cockcroft-Gault) 122.7 Glucose Level 124 mg/dL (70-99) Calcium Level 8.4 mg/dL (8.5-10.1) Brief Hospital Course Ms. Berman is a 70 old who presented with worsening SOA despite outpatient treatment of bronchitis with oral cipro and prednisone. She required higher than baseline oxygen, continuous neb tx in ER and IV hydration, IV steroids and neb treatments but her CXR did not show pneumonia and she improved quickly and wants to manage lingering exacerbation at home. She is neutropenic from lung cancer treatment but afebrile and stable for discharge. Dr. Day saw her in consultation Discharge Information Condition at Discharge: Improved, Stable Follow Up: Weeks (within [address] Mathew) Disposition/Orders: D/C to Home Scheduled Alprazolam (Xanax), 0.5 MG PO PRN Q6HRS, (Reported) Amlodipine Besylate (Amlodipine Besylate), 5 MG PO DAILY, (Reported) Cetirizine Hcl (Zyrtec), 1 TAB PO DAILY, (Reported) Ciprofloxacin/Ciprofloxa Hcl (Ciprofloxacin Er 500 Mg Tablet), 500 MG PO BID, ( Reported) Ipratropium/Albuterol Sulfate (Duoneb 0.5-3(2.5) Mg/3 Ml), 3 ML NEB RTQID Prednisone (Prednisone), 10 MG PO DAILY, (Reported) Tiotropium [place] (Spiriva), 2 INH IH DAILY, (Reported) Scheduled PRN Albuterol Sulfate (Proair Hfa Inhaler), 1 PUFF INH PRN Q6HRS PRN for SHORTNESS OF BREATH Ondansetron Hcl (Zofran), 8 MG PO BID PRN for NAUSEA/VOMITING, (Reported) Polyethylene Glycol 3350 (Miralax), 1 PACKET PO DAILY PRN for CONSTIPATION LENNY RAY MD Sep 19, 2016 11:40
[2016-09-19] MEDS ORDERED: FLUC150T PO (12:12)
[2016-09-19] MEDS ORDERED: AZITHROMYCIN 500 MG in IV NORMAL SALINE 250ML 250 ML IV SCH (13:00)
== END 2016-09-19 13:25 | disposition home or self-care (01) | DRG 189 ==
LOC: ER 09:40 → 6 SOUTH 12:18
PROVIDERS: ADMIT Family Medicine; ATTEND Family Medicine
DX: J96.21 Acute and chronic respiratory failure with hypoxia (principal); J44.1 Chronic obstructive pulmonary disease with (acute) exacerbation; F41.9 Anxiety disorder, unspecified; I10 Essential (primary) hypertension; D70.1 Agranulocytosis secondary to cancer chemotherapy; K59.00 Constipation, unspecified; T45.1X5A Adverse effect of antineoplastic and immunosuppressive drugs, initial encounter; K21.9 Gastro-esophageal reflux disease without esophagitis; Z85.118 Personal history of other malignant neoplasm of bronchus and lung; Z87.442 Personal history of urinary calculi; Z87.891 Personal history of nicotine dependence; Z92.21 Personal history of antineoplastic chemotherapy; Z92.3 Personal history of irradiation; Z99.81 Dependence on supplemental oxygen; Z79.899 Other long term (current) drug therapy; Z98.49 Cataract extraction status, unspecified eye; Z90.49 Acquired absence of other specified parts of digestive tract; Y92.89 Other specified places as the place of occurrence of the external cause; J40 Bronchitis, not specified as acute or chronic
CPT/HCPCS: 36415; 71020; 71275; 80048; 80053; 83880; 84484; 85027; 87804; 93005; 94250; 94640; 94760; 96361; 96365; 96375; J0456; J0690; J2920; J7030; J7620; Q9967; 99285-25

== ENCOUNTER → 2016-10-29 | Outpatient (CLI) | payer MEDICARE ==
[~2016-10-29] MED LIST changes: +CIPR500T6 PO; +FLUC150T PO; +IOHEXOL 240 MG/ML 50ML VIAL. PO ONE; +IOHEXOL 300 MG/ML 75 ML VIAL IV ONE; -LEVO500T38 PO; +LEVO500T59 PO
--- NOTE | 2016-10-29 15:52 | RAD ---
CT of the chest, abdomen and pelvis with contrast, 10/29/2016: History: Restaging left lung cancer Multidetector CT imaging was performed following oral and IV administration of contrast. Comparison is made to a CT chest study from 09/18/2016. Moderate emphysematous changes are present in the lungs with scattered parenchymal scars. There is an abnormal soft tissue density in the left upper lobe along the anterior aspect of the left hilum extending into the lingula anteromedially. It appears to be unchanged in size. An area of pleural thickening anteriorly in the left mid chest has progressed slightly. Mild underlying parenchymal infiltrate at this level has progressed slightly. No right lung infiltrate is seen. There is no evidence of pleural fluid. The above described soft tissue density appears to extend into the mediastinum along the inferior aspect of the left main pulmonary artery. An unchanged density in the anterior mediastinum adjacent to the ascending aorta probably represents a small amount of fluid in the superior pericardial recess. No new mediastinal adenopathy is seen. There is a small nonspecific nodule in the left lobe of the thyroid gland. There are several well-defined low density lesions in the liver. These appear to be unchanged since the previous CT abdomen study from 04/08/2016. These are probably cysts. No new hepatic lesion is seen. Minimal increased density along the posterior wall of the gallbladder may be due to sludge or small calculi. There is no evidence of cholecystitis. The pancreas is unremarkable. The spleen is of normal size. The kidneys are unremarkable. No adrenal mass is identified. There is moderate aortoiliac calcific plaquing. No abdominal or pelvic adenopathy is seen. The bowel loops are not dilated. There is an abnormal bowel loop in the left flank region which appears to represent a small bowel intussusception. This is most commonly a transient phenomena of no clinical significance. No free fluid or free air is evident in the abdomen or pelvis. IMPRESSION: 1. Moderate emphysema and scarring. 2. Unchanged soft tissue density in the medial aspect of the left upper lobe compatible with residual neoplasm, although there may be a component of atelectasis. 3. Progressing mild pleural-parenchymal opacities in the anteromedial aspect of left upper lobe. Has there been radiation therapy to this region? 3. No evidence of metastatic disease in the abdomen or pelvis. 4. Probable transient small bowel intussusception in the left midabdomen. PQRS Compliance Statement: One or more of the following individualized dose reduction techniques were utilized for this examination: 1. Automated exposure control 2. Adjustment of the mA and/or kV according to patient size 3. Use of iterative reconstruction technique
== END | disposition home or self-care (01) ==
LOC: CT 08:48
PROVIDERS: ATTEND Internal Medicine Hematology & Oncology
DX: C34.12 Malignant neoplasm of upper lobe, left bronchus or lung (principal); J43.9 Emphysema, unspecified
CPT/HCPCS: 71260; 74177; Q9966; Q9967

== ENCOUNTER → 2017-01-26 | Outpatient (CLI) | payer MEDICARE ==
[~2017-01-26] MED LIST changes: +CONTRAST GIVEN MC PRN; -IOHEXOL 240 MG/ML 50ML VIAL. PO ONE
--- NOTE | 2017-01-26 10:42 | RAD ---
Indication follow-up lung malignancy. Left upper lobe Axial images through the chest were obtained. 75 cc of Omnipaque 300 was administered intravenously. Comparison is made to an exam 10/29/2016. There is an unchanged nodule associated with the left lobe of the thyroid. The thoracic aorta is unremarkable apart from some plaquing. Coronary artery calcification is noted. Extensive plaquing is noted associated with the thoracoabdominal aorta similar to the previous exam. An acute or unexpected finding in the upper abdomen is not seen. A small mass, compatible with a cyst, is noted in the liver. It is similar to the prior exam. There are occasional small mediastinal lymph nodes appearing similar to the prior exam There are moderately advanced underlying emphysematous changes. Some pleural-parenchymal scarring in the left upper lobe, anteromedially, is noted appearing similar to the prior study. Soft tissue density slightly more caudally in the left lung, abutting the mediastinum, appear similar. A new finding in the left chest is not seen. There is now, however, not seen previously an area of atelectasis in the right middle lobe. This may reflect pneumonia. A parenchymal mass is not seen but an endobronchial lesion is not excluded. IMPRESSION: Pleural-parenchymal scarring and parenchymal opacity in the left chest appearing similar. A new finding in the left chest, relative to the examination 10/29/2016, is not seen. New volume loss, compatible with atelectasis or pneumonia, in the right middle lobe. A definite mass is not seen but an endobronchial lesion accounting for the appearance is not excluded PQRS Compliance Statement: One or more of the following individualized dose reduction techniques were utilized for this examination: 1. Automated exposure control 2. Adjustment of the mA and/or kV according to patient size 3. Use of iterative reconstruction technique
== END | disposition home or self-care (01) ==
LOC: CT 09:19
PROVIDERS: ATTEND Internal Medicine Hematology & Oncology
DX: C34.12 Malignant neoplasm of upper lobe, left bronchus or lung (principal); J43.9 Emphysema, unspecified
CPT/HCPCS: 71260; Q9967

== ENCOUNTER 2017-04-23 06:00 | Inpatient (IN) | payer MEDICARE ==
[2017-04-23] MEDS: MORPHINE SULFATE 2 MG/ML DISP.SYRIN. IV/SQ ×2 (06:33→09:08)
[2017-04-23 06:46] LABS: ADD MAN DIFF? NO
[2017-04-23 06:48] LABS: BASO % 1 % (0-3); EOS # 0.2 x10^3/uL (0.0-0.7); EOS % 2 % (0-3); HEMATOCRIT 41.9 % (36.0-47.0); HEMOGLOBIN 13.8 g/dL (12.0-15.5); LYMPH # 0.5 x10^3/uL (1.0-4.8); LYMPH % 7 % (24-48); MEAN CORPUSCULAR HEMOGLOBIN 32 pg (25-35); MEAN CORPUSCULAR HGB CONC 33 g/dL (31-37); MEAN CORPUSCULAR VOLUME 97 fL (79-100); MONO # 0.7 x10^3/uL (0.0-1.1); MONO % 9 % (0-9); NEUT # 6.3 x10^3uL (1.8-7.7); NEUT % 82 % (31-73); PLATELET COUNT 203 x10^3/uL (140-400); RED BLOOD COUNT 4.32 x10^6/uL (3.50-5.40); RED CELL DISTRIBUTION WIDTH 14.8 % (11.5-14.5); WHITE BLOOD COUNT 7.7 x10^3/uL (4.0-11.0)
[2017-04-23 06:57] LABS: INR 1.1 (0.8-1.1); PROTHROMBIN TIME PATIENT 13.2 SEC (11.7-14.0)
[2017-04-23 07:13] LABS: ANION GAP 9 (6-14); BLOOD UREA NITROGEN 12 mg/dL (7-20); CALCIUM 8.8 mg/dL (8.5-10.1); CARBON DIOXIDE 30 mmol/L (21-32); CHLORIDE 104 mmol/L (98-107); CREATININE 0.4 mg/dL (0.6-1.0); GFR 158.3; GLUCOSE 108 mg/dL (70-99); POTASSIUM 4.3 mmol/L (3.5-5.1); SODIUM 143 mmol/L (136-145)
[2017-04-23 07:18] LABS: ALK PHOS 92 U/L (46-116); ALT (SGPT) 14 U/L (14-59); AST (SGOT) 11 U/L (15-37); DIRECT BILIRUBIN 0.1 mg/dL (0.0-0.2); LIPASE 117 U/L (73-393); MAGNESIUM 1.8 mg/dL (1.8-2.4); TOTAL BILIRUBIN 0.7 mg/dL (0.2-1.0); TOTAL PROTEIN 7.5 g/dL (6.4-8.2)
[2017-04-23 07:25] LABS: THYROID STIM HORMONE (TSH) 1.139 uIU/mL (0.358-3.74)
[2017-04-23 07:26] LABS: NT-PRO BNP 169 pg/mL (0-124); TROPONINI < 0.017 ng/mL (0.000-0.055)
[2017-04-23 07:26] LABS: CKMB MASS 1.4 ng/mL (0.0-3.6); CREATINE KINASE 47 U/L (26-192)
[2017-04-23] MEDS: LIDO:MAALOX:DONNATAL 1:1:1 15 ML SINGLE DOSE SWSW (07:45)
[2017-04-23] MEDS: IOHEXOL 300 MG/ML 100ML VIAL. IV (07:58)
[2017-04-23] MEDS ORDERED: CONTRAST GIVEN MC (08:00)
[2017-04-23] MEDS ORDERED: ONDANSETRON PF 4 MG/2 ML VIAL. IV (09:15)
[2017-04-23] MEDS ORDERED: MORPHINE SULFATE 2 MG/ML DISP.SYRIN. IV (09:15)
[2017-04-23] MEDS ORDERED: NITROGLYCERIN SUBLINGUAL 0.4 MG BOTTLE OF 25. SL (09:45)
[2017-04-23] MEDS: IPRATRPIUM/ALBUTEROL 0.5/2.5MG 3 ML NEBU. NEB (09:56)
[2017-04-23] MEDS: ASPIRIN 325 MG TABLET PO (09:57)
[2017-04-23 11:48] LABS: BARBITURATES NEG (NEG); BENZODIAZEPINES NEG (NEG); CANNABINOIDS NEG (NEG); COCAINE NEG (NEG); METHADONE NEG (NEG); OPIATES POS (NEG); PHENCYCLIDINE NEG (NEG)
[2017-04-23 11:49] LABS: AMPHETAMINE/METHAMPHETAMINE NEG (NEG); ETHANOL, URINE NEG (NEG)
[2017-04-23 15:36] LABS: TROPONINI < 0.017 ng/mL (0.000-0.055)
[2017-04-23] MEDS ORDERED: ACETAMINOPHEN 500 MG TABLET PO (18:45)
[2017-04-23 22:11] LABS: TROPONINI < 0.017 ng/mL (0.000-0.055)
[2017-04-24 05:31] LABS: ADD MAN DIFF? NO
[2017-04-24 06:04] LABS: BASO # 0.1 x10^3/uL (0.0-0.2); BASO % 1 % (0-3); EOS # 0.2 x10^3/uL (0.0-0.7); EOS % 4 % (0-3); HEMATOCRIT 39.2 % (36.0-47.0); HEMOGLOBIN 12.8 g/dL (12.0-15.5); LYMPH % 20 % (24-48); MEAN CORPUSCULAR HEMOGLOBIN 32 pg (25-35); MEAN CORPUSCULAR HGB CONC 33 g/dL (31-37); MEAN CORPUSCULAR VOLUME 99 fL (79-100); MONO # 0.8 x10^3/uL (0.0-1.1); MONO % 17 % (0-9); NEUT # 2.8 x10^3uL (1.8-7.7); NEUT % 58 % (31-73); PLATELET COUNT 184 x10^3/uL (140-400); RED BLOOD COUNT 3.95 x10^6/uL (3.50-5.40); WHITE BLOOD COUNT 4.9 x10^3/uL (4.0-11.0)
[2017-04-24 06:38] LABS: ANION GAP 8 (6-14); BLOOD UREA NITROGEN 17 mg/dL (7-20); CALCIUM 8.7 mg/dL (8.5-10.1); CARBON DIOXIDE 33 mmol/L (21-32); CHLORIDE 105 mmol/L (98-107); CREATININE 0.5 mg/dL (0.6-1.0); GFR 122.3; GLUCOSE 72 mg/dL (70-99); POTASSIUM 4.2 mmol/L (3.5-5.1); SODIUM 146 mmol/L (136-145)
[2017-04-24] MEDS: NICOTINE 14MG PATCH. TD (09:24)
[2017-04-24] MEDS: IPRATRPIUM/ALBUTEROL 0.5/2.5MG 3 ML NEBU. NEB (10:09)
[2017-04-24] MEDS ORDERED: ALPRAZolam 0.5 MG TABLET PO (12:00)
[2017-04-24] MEDS: CETIRIZINE HCL 10 MG TABLET. PO (12:00)
[2017-04-24] MEDS: amLODIPine BESYLATE 5 MG TABLET PO (12:00)
[2017-04-24] MEDS: PNEUMOC CONJ VACC 23-VALENT 0.5 ML VIAL. VAX IM (13:13)
[2017-04-24] MEDS: FLU VACC QS2017-18 (36MOS+)/PF 0.5 ML SYRINGE. VAX IM (13:14)
== END 2017-04-24 13:47 | disposition home or self-care (01) | DRG 556 ==
LOC: ER 06:00 → ED HOLD 09:00 → 2 NORTH 17:01
DX: M79.1 Myalgia (principal); J96.10 Chronic respiratory failure, unspecified whether with hypoxia or hypercapnia; I11.9 Hypertensive heart disease without heart failure; J44.9 Chronic obstructive pulmonary disease, unspecified; F17.210 Nicotine dependence, cigarettes, uncomplicated; F41.9 Anxiety disorder, unspecified; J30.9 Allergic rhinitis, unspecified; Z92.3 Personal history of irradiation; Z92.21 Personal history of antineoplastic chemotherapy; Z85.118 Personal history of other malignant neoplasm of bronchus and lung; Z23 Encounter for immunization; Z82.49 Family history of ischemic heart disease and other diseases of the circulatory system
CPT/HCPCS: 36415; 71045; 71275; 74174; 80048; 80076; 80307; 82553; 83690; 83735; 83880; 84443; 84484; 85025; 85610; 90686; 90732; 93005; 94640; 96374; 96375; 99285; 99285-25; J2270; J7620; Q9967

== ENCOUNTER → 2017-11-03 | Outpatient (CLI) | payer MEDICARE | END | disposition home or self-care (01) | LOC: CT 08:58 | DX: J43.9 Emphysema, unspecified (principal); I11.9 Hypertensive heart disease without heart failure; E78.5 Hyperlipidemia, unspecified; E87.6 Hypokalemia; Z85.118 Personal history of other malignant neoplasm of bronchus and lung | CPT/HCPCS: 71250 ==

== ENCOUNTER → 2018-06-19 | Outpatient (CLI) | payer MEDICARE ==
[2017-04-24 10:38] VITALS: BP 105/53
[~2018-06-19] MED LIST changes: +ALBU2.5V8 INH; +AMLO5TAB10 PO; -AMLO5TAB2 PO; -CONTRAST GIVEN MC PRN; +GLYC10.7 IH; -IOHEXOL 300 MG/ML 75 ML VIAL IV ONE; +IPRA0.2S5 NEB; -IPRA3AMP NEB; +IPRA3AMP29 NEB; -PROAIR HFA8.5 GM INH; +VENTOLIN HFA18 GM INH
--- NOTE | 2018-06-19 11:25 | RAD ---
CT CHEST WO CONTRAST Indication: STAGE 2- NON SMALL CELL LEFT LUNG CA
PREVIOUS Exposure: One or more of the following individualized dose reduction techniques were utilized for this examination: 1. Automated exposure control 2. Adjustment of the mA and/or kV according to patient size 3. Use of iterative reconstruction technique. Comparison: November 03, 2017 TECHNIQUE: No intravenous contrast given. Multiplanar reconstructions are reviewed. FINDINGS: Aorta is calcified and ectatic, similar prior. No gross aneurysm is seen. Vascular exam limited without contrast. Dense coronary artery calcifications are identified. Partially visualized thyroid unremarkable. Small pretracheal lymph nodes are again identified and stable. No significant axillary or mediastinal node enlargement is identified, no definite hilar lymph nodes are seen although difficult to define without intravenous contrast. Mild pericardial effusion or thickening is unchanged. No significant pleural effusion. Severe emphysema is again identified. Pleural parenchymal changes are stable likely scarring. Bandlike density in the right middle lobe anteriorly is unchanged. Small noncalcified pulmonary nodule is identified in the anterior lingula of the left lung measuring 4 mm diameter, not clearly seen on prior study. Series 3, image 39. Small hypodense lesions are identified in the liver, also seen previously, largest at the upper right lobe measures 1 cm, appears similar to prior study. Vertebral body height intact. No destructive bone lesion is identified. Mild sclerotic density involving the left anterior fourth rib and lateral fifth rib are identified. The fourth rib appearance was seen previously although the fifth rib finding was not apparent at that time. These may represents nondisplaced rib fractures, metastatic bone lesion is not excludable. IMPRESSION: 1. Development of a 4 mm pulmonary nodule in the left lung. Metastatic nodule is possible. 2. Bone density heterogeneity and sclerosis at the left and fifth ribs, possibilities include nondisplaced fractures or metastatic disease. 3. Small hepatic lesions are stable, nonspecific but may represent cysts. Electronically signed by: Lopez Driver MD (06/19/2018 11:22 AM) [id number]
== END | disposition home or self-care (01) ==
LOC: CT 10:25
PROVIDERS: ATTEND Radiology Radiation Oncology
DX: R91.1 Solitary pulmonary nodule (principal); J43.9 Emphysema, unspecified; C34.12 Malignant neoplasm of upper lobe, left bronchus or lung
CPT/HCPCS: 71250

== ENCOUNTER → 2018-10-03 | Outpatient (CLI) | payer MEDICARE ==
[2017-04-24 10:38] VITALS: BP 105/53
--- NOTE | 2018-10-03 08:56 | RAD ---
CT of the chest without contrast, 10/03/2018: HISTORY: Follow-up lung cancer Comparison is made to a study from 06/19/2018. There are severe emphysematous changes in the lungs. There is unchanged streaky atelectasis or scarring medially in the right middle lobe. No new right lung abnormality is seen. There are moderate streaky opacities in the left upper lobe. The majority of these are unchanged. There is a pleural-parenchymal opacity anteriorly in the left upper lobe best seen on image 31 of series #2 which is more prominent than on the previous study. There is abrupt occlusion of the lingular bronchus which is unchanged. This is the site of a previously treated lung malignancy. A tiny 4 mm lingular opacity seen anteriorly on the previous study is unchanged. There is no evidence of pleural fluid. There is calcific plaquing of the thoracic aorta without evidence of aneurysm. Moderate coronary artery calcifications are present. There is a small pericardial effusion which has increased in size since the previous study. Several small mediastinal lymph nodes are seen without evidence of pathologic enlargement. Unchanged small low-density lesions in the liver are probably cysts. No adrenal abnormality is detected. Left lateral rib deformities are unchanged. IMPRESSION: 1. Emphysema with parenchymal scarring. 2. Ongoing pleural-parenchymal opacities in the left upper chest which are most prominent in the lingular region and are secondary to a treated lung malignancy. There has been progression of a small anterior pleural-parenchymal density in the left upper lobe. This could represent post radiation change or recurrent tumor. 3. Increasing small pericardial effusion. 4. No other significant interval change PQRS Compliance Statement: One or more of the following individualized dose reduction techniques were utilized for this examination: 1. Automated exposure control 2. Adjustment of the mA and/or kV according to patient size 3. Use of iterative reconstruction technique
== END | disposition home or self-care (01) ==
LOC: CT 07:48
PROVIDERS: ATTEND Internal Medicine Hematology & Oncology
DX: C34.12 Malignant neoplasm of upper lobe, left bronchus or lung (principal); J43.9 Emphysema, unspecified; J98.4 Other disorders of lung; I70.0 Atherosclerosis of aorta; I25.10 Atherosclerotic heart disease of native coronary artery without angina pectoris; I31.3 Pericardial effusion (noninflammatory); K76.9 Liver disease, unspecified; M95.4 Acquired deformity of chest and rib
CPT/HCPCS: 71250

== ENCOUNTER → 2019-01-16 | Outpatient (CLI) | payer MEDICARE ==
[2017-04-24 10:38] VITALS: BP 105/53
--- NOTE | 2019-01-16 16:55 | RAD ---
Examination: CT CHEST WO CONTRAST History: Malignant left lung neoplasm Comparison/Correlation: 10/03/2018 CT chest without contrast Findings: Axial images of chest were obtained without contrast. Sagittal and coronal reformatted images were provided. Small pericardial effusion is evident. It is similar to the prior exam. Significant emphysematous involvement of the lung mcdonough noted. Scarring about the left hilum is similar to the prior exam. No new nodule or mass. No suspicious infiltrate in the interval. No pleural effusion. Significant coronary arterial calcification is identified. No acute bony process. Described anterior left thoracic pleural based density is notably diminished in the interval and with minimal pleural thickening at the site currently seen. Absence of the distal lingular bronchus again seen. Previously described anterior left basilar nodules not currently delineated. Impression: Near-complete resolution of previously reported anterior left mid thoracic pleural density. No suspicious new finding. Pericardial effusion is unchanged. PQRS Compliance Statement: One or more of the following individualized dose reduction techniques were utilized for this examination: 1. Automated exposure control 2. Adjustment of the mA and/or kV according to patient size 3. Use of iterative reconstruction technique Electronically signed by: Jabier Abdul MD (01/16/2019 4:52 PM) [facility]
== END | disposition home or self-care (01) ==
LOC: CT 09:44
PROVIDERS: ATTEND Internal Medicine Hematology & Oncology
DX: C34.12 Malignant neoplasm of upper lobe, left bronchus or lung (principal); I25.10 Atherosclerotic heart disease of native coronary artery without angina pectoris
CPT/HCPCS: 71250

== ENCOUNTER → 2019-10-15 | Outpatient (CLI) | payer MEDICARE ==
[2017-04-24 10:38] VITALS: BP 105/53
[~2019-10-15] MED LIST changes: -CETI10TA22 PO; +CETI10TA24 PO
--- NOTE | 2019-10-15 11:32 | RAD ---
Examination: CT CHEST WO CONTRAST History: Reason: MALIGNANT NEOPLASM OF LEFT LUNG / Spl. Instructions: / History: Comparison/Correlation: 01/16/2019 CT chest without contrast Findings: Axial images of the chest were obtained without contrast. Sagittal and coronal reformatted images were provided. Small pericardial effusion is present and increased in the interval. Complex fluid density structure is new anterior to the main pulmonary extending tube the anterior left pleura medially measuring 2.9 cm transverse by 3 cm anteroposterior by 2.3 cm longitudinal. Interval development of patchy linear atelectasis or infiltrate anterosuperior to left hilum is noted. Scarring at the lateral left mid thoracic levels again seen. Interstitial thickening of the left lateral lung base is again seen. Minimal punctate nodularity involving the right middle lobe is present on axial image 39 of series 3 measuring 0.35 cm x 0.27 cm. No enlarged thoracic lymph nodes. Diffuse, marked emphysematous involvement of the lung mcdonough noted bilaterally. Coronary arterial calcification is notable. Low-attenuation lesions involving the superior liver again seen are similar compared to multiple prior exams likely representing cysts. Old left rib fracture deformity again seen. Impression: Increased size of small pericardial effusion. New complex fluid density or possible mass adjacent to the main pulmonary artery extending to abut the anterior thorax. New interstitial infiltrates or linear atelectasis at the medial left upper lung field. Possibility of recurrence or new mass is not excluded. Extensive emphysema. Continued nodularity involving the right middle lobe in the interval. This is too small for PET resolution. Consider continued follow-up. PQRS Compliance Statement: One or more of the following individualized dose reduction techniques were utilized for this examination: 1. Automated exposure control 2. Adjustment of the mA and/or kV according to patient size 3. Use of iterative reconstruction technique Electronically signed by: Jabier Abdul MD (10/15/2019 11:30 AM) [id number]
== END | disposition home or self-care (01) ==
LOC: CT 11:16
PROVIDERS: ATTEND Internal Medicine Hematology & Oncology
DX: R91.1 Solitary pulmonary nodule (principal); C34.12 Malignant neoplasm of upper lobe, left bronchus or lung; J43.8 Other emphysema; I25.10 Atherosclerotic heart disease of native coronary artery without angina pectoris; S22.32XG Fracture of one rib, left side, subsequent encounter for fracture with delayed healing; X58.XXXD Exposure to other specified factors, subsequent encounter; I31.3 Pericardial effusion (noninflammatory)
CPT/HCPCS: 71250

== ENCOUNTER → 2019-11-02 | Outpatient (CLI) | payer MEDICARE ==
[2017-04-24 10:38] VITALS: BP 105/53
--- NOTE | 2019-11-02 14:26 | CARD ---
MR#: [id number] Date of Study: 11/02/2019 Ordering Physician: KATIE HESTER, Referring Physician: KATIE HESTER, Tech: Vee Grubbs JOHN APPROVED REPORT EXAM: Two-dimensional and M-mode echocardiogram with Doppler and color Doppler. Other Information Quality : Good INDICATION COPD Dyspnea Echo Enhancing Agent Agent/Amount Used: Agitated Saline 8mL 2D DIMENSIONS RVDd2.8 (2.9-3.5cm)Left Atrium(2D)2.8 (1.6-4.0cm) IVSd1.1 (0.7-1.1cm)Aortic Root(2D)2.8 (2.0-3.7cm) LVDd4.3 (3.9-5.9cm)LVOT Diameter2.2 (1.8-2.4cm) PWd1.0 (0.7-1.1cm)LVDs2.8 (2.5-4.0cm) FS (%) 35.3 %SV52.8 ml LVEF(%)65.0 (>50%) Aortic Valve AoV Peak Duc.161.3cm/sAoV VTI27.8cm AO Peak GR.10.4mmHgLVOT Peak Duc.141.5cm/s LVOT VTI 26.26cmAO Mean GR.6mmHg JAMES (VMAX)3.74du8ITS (VTI)3.47cm2 Mitral Valve MV E Oonuosnm43.6cm/sMV DECEL [id number] MV A Mdsfkuvn19.9cm/sMV SFU69nk E/A Ratio0.7MVA (PHT)2.45cm2 TDI E/Lateral E'12.6E/Medial E'11.3 Tricuspid Valve TR P. Hneziizu210zj/sRAP [id number] TR Peak Gr.60aoAlOVZU46uzUq Pulmonary Vein S1 Vwcminyx39.3cm/sD2 Dkwkobvg34.0cm/s LEFT VENTRICLE The left ventricle is normal size. There is normal left ventricular wall thickness. The left ventricu lar systolic function is normal. The Ejection Fraction is 60-65%. There is normal LV segmental wall m otion. Transmitral Doppler flow pattern is Grade I-abnormal relaxation pattern. RIGHT VENTRICLE The right ventricle is normal size. There is normal right ventricular wall thickness. The right ventr icular systolic function is normal. ATRIA The left atrium size is normal. The right atrium size is normal. The interatrial septum is intact wit h no evidence for an atrial septal defect or patent foramen ovale as noted on 2-D or Doppler imaging. Bubbe study negative for interatrial shunt. AORTIC VALVE The aortic valve is calcified but opens well. Doppler and Color Flow revealed no significant aortic r egurgitation. There is no significant aortic valvular stenosis. MITRAL VALVE The mitral valve is normal in structure and function. There is no evidence of mitral valve prolapse. There is no mitral valve stenosis. Doppler and Color-flow revealed trace mitral regurgitation. TRICUSPID VALVE The tricuspid valve is normal in structure and function. Doppler and Color Flow revealed mild tricusp id regurgitation. There is mild to moderate pulmonary hypertension. The PA pressure was estimated at 40 mmHg. There is no tricuspid valve stenosis. PULMONIC VALVE The pulmonic valve is not well visualized. Doppler and Color Flow revealed no pulmonic valvular regur gitation. There is no pulmonic valvular stenosis. GREAT VESSELS The aortic root is normal in size. The ascending aorta is normal in size. The IVC is normal in size a nd collapses >50% with inspiration. PERICARDIAL EFFUSION There is a small circumferential pericardial effusion. Critical Notification Critical Value: No <Conclusion> The left ventricular systolic function is normal. The Ejection Fraction is 60-65%. There is normal LV segmental wall motion. Transmitral Doppler flow pattern is Grade I-abnormal relaxation pattern. Trace mitral regurgitation. Mild tricuspid regurgitation. The PA pressure was estimated at 40 mmHg. There is a small circumferential pericardial effusion. Bubbe study negative for interatrial shunt. Signed by : David Li, Electronically Approved : 11/02/2019 14:25:29
== END | disposition home or self-care (01) ==
LOC: ECHO 12:22
PROVIDERS: ATTEND Family Medicine
DX: I08.1 Rheumatic disorders of both mitral and tricuspid valves (principal); I27.20 Pulmonary hypertension, unspecified; R06.02 Shortness of breath; R06.00 Dyspnea, unspecified
CPT/HCPCS: 93306

== ENCOUNTER → 2019-11-23 | Outpatient (CLI) | payer MEDICARE ==
[2017-04-24 10:38] VITALS: BP 105/53
--- NOTE | 2019-11-23 17:05 | RAD ---
EXAM: PET W CT SKULL TO MIDTHIGH EXAM DATE: 11/23/2019 INDICATION: Reason: L LUNG CA / Spl. Instructions: / History: RADIOPHARMACEUTICAL: 13.3 mCi of F-18 Fluorodeoxyglucose (FDG) I.V. via the right antecubital fossa. TECHNIQUE: Patient weight: 116 pounds. Following at least four-hour fasting, the patient's blood glucose was 126 mg/dl. Approximately 1 hour after administration of FDG, overlapping emission scanning was performed from the orbital meatal line through the pelvis. A low-dose CT was performed for attenuation correction purposes and anatomic localization. Fused images of PET and CT were reviewed. Any standardized uptake values (SUV) reported are maximum values within a volume region of interest, expressed in gm/ml. Patient was imaged prone for comfort. COMPARISON: Chest CT without IV contrast of 10/15/2019 FINDINGS: PET: Left upper lobe lung mass abutting the left main pulmonary artery shows FDG uptake to max SUV of 11.7. By comparison, background mediastinal activity in shows a max SUV of 2.3 in hepatic background activity shows a max SUV of 2.5. No other abnormal FDG uptake identified. CT: Pleural parenchymal scarring in the left upper lobe and underlying panlobular emphysema are redemonstrated. No pleural effusion. No mediastinal or hilar adenopathy noted. A pericardial effusion remains present, similar to prior. No calcifications in the normal caliber thoracic aorta are also noted. Abdomen and pelvis show scattered colonic diverticuli. Skeletal system shows mild generalized osteopenia and degenerative changes in the lower lumbar spine. No acute or aggressive osseous lesions shown. IMPRESSION: Posttreatment changes in the left upper lobe with residual FDG uptake to max SUV of 11.7. No other areas of abnormal FDG uptake identified. Electronically signed by: Rosa Coronel MD (11/23/2019 5:02 PM) [id number]
== END ==
LOC: PETSC 09:36
PROVIDERS: ATTEND Internal Medicine Hematology & Oncology
DX: C34.12 Malignant neoplasm of upper lobe, left bronchus or lung (principal); J98.4 Other disorders of lung; I31.3 Pericardial effusion (noninflammatory); J43.1 Panlobular emphysema
CPT/HCPCS: 78815; A9552